=== PATIENT | female | born 1990 | race Caucasian/White ===

== ENCOUNTER 2016-08-17 18:22 | Emergency (ER) | payer BC, MEDICAID ==
--- NOTE | 2016-08-17 18:44 | EDPHY ---
H & P Stated Complaint: R calf pain R/O dvt Time Seen by Provider: 08/17/16 18:28 HPI/ROS: CHIEF COMPLAINT: Right calf pain, history of right knee injury HISTORY OF PRESENT ILLNESS: The patient presents to the ED with progressive right calf pain and foot pain over the past several days. The patient did injure her knee approximately 3 weeks ago. She is currently under the care of an orthopedic surgeon who is evaluating her for possible ligamentous injury. She is scheduled to get an MRI tomorrow. The patient has not had surgery however she has been immobilized using crutches. She denies any focal numbness or weakness. The patient has no prior history of DVT but does smoke and is currently on control pills. The patient denies any chest pain or shortness of breath. She denies additional complaints. She denies significant past medical history. REVIEW OF SYSTEMS: A comprehensive 10 point review of systems is otherwise negative aside from elements mentioned in the history of present illness. Source: Patient - Personal History LMP (Females 10-55): 1-7 Days Ago Current Tetanus/Diphtheria Vaccine: Unsure Current Tetanus Diphtheria and Acellular Pertussis (TDAP): Unsure - Medical/Surgical History Hx Asthma: No Hx Chronic Respiratory Disease: No Hx Diabetes: No Hx Cardiac Disease: No Hx Renal Disease: No Hx Cirrhosis: No Hx Alcoholism: No Hx HIV/AIDS: No Hx Splenectomy or Spleen Trauma: No Other PMH: R acl tear 07/15, l knee surgery - Social History Smoking Status: Current every day smoker - Physical Exam Exam: General Appearance: Alert, no distress Eyes: Pupils equal and round no pallor or injection ENT, Mouth: Mucous membranes moist Respiratory: There are no retractions, lungs are clear to auscultation Cardiovascular: Regular rate and rhythm Gastrointestinal: Abdomen is soft and nontender, no masses, bowel sounds normal Neurological: A&O, normal motor function, normal sensory exam, normal cranial nerves Skin: Warm and dry, no rashes Musculoskeletal: Neck is supple nontender Extremities: Tenderness to palpation noted in the right calf, 2+ dorsalis pedis and posterior tibial pulses Constitutional: Initial Vital Signs Temperature (C) 36.8 C 08/17/16 18:24 Heart Rate 106 H 08/17/16 18:24 Respiratory Rate 16 08/17/16 18:24 Blood Pressure 140/88 H 08/17/16 18:24 O2 Sat (%) 97 08/17/16 18:24 O2 Delivery Mode Room Air Allergies/Adverse Reactions: No Known Allergies Allergy (Unverified 05/15/14 18:08) Home Medications: Medication Instructions Recorded NK [No Known Home Meds] 05/15/14 Medical Decision Making - Diagnostics Imaging: Right lower extremity ultrasound: Negative for DVT. Study results reported to me by Dr. Heri Clements. ED Course/Re-evaluation: The patient presents to the emergency department with complaints of calf swelling. She has no evidence of a DVT noted on her ultrasound. The patient has no clinical evidence of an infection. At this point time I do feel she can safely be discharged home with instructions to repeat her ultrasound in 2 weeks for any ongoing symptoms. She has been told to return to the ED immediately for increasing pain, redness, fever, difficulty breathing or other concerns. Differential Diagnosis: Differential diagnosis considered includes DVT, myofascial strain, ruptured Izaguirre cyst, seroma, abscess, cellulitis Departure - Departure Disposition: Home, Routine, Self-Care Clinical Impression: Strain of right knee Condition: Good Instructions: Knee Pain (ED) Additional Instructions: 1. There is no evidence of a blood clot noted on your ultrasound today. 2. Please repeat the ultrasound in 2 weeks for any ongoing pain or swelling. 3. Please follow up as scheduled with your orthopedic surgeon. 4. Return to the ED for markedly worsening symptoms, difficulty breathing, fever or other concerns.
--- NOTE | 2016-08-17 19:55 | US ---
Ultrasound Venous Doppler Extremity-right side Indication: Right calf pain and swelling. TECHNIQUE: Grayscale and color imaging of the right lower extremity. FINDINGS: Right common femoral, profunda femoral, superficial femoral, popliteal, posterior tibial pe roneal and greater saphenous veins are patent, competent, and compressible and exhibit normal wavefor ms. Left common femoral vein is patent, competent, and compressible. IMPRESSION: No evidence of right lower extremity venous thrombosis. Critical results relayed by Dr. Clements to Dr. Kirk on August 17, 2016 at 1938 hours.
[2016-08-17 20:12] VITALS: BP 118/72; PULSE 76; RESP 17; TEMP 97.9; O2SAT 95
== END 2016-08-17 20:11 | disposition home or self-care (01) ==
DX: S86.911A Strain of unspecified muscle(s) and tendon(s) at lower leg level, right leg, initial encounter (principal); F17.200 Nicotine dependence, unspecified, uncomplicated; X58.XXXA Exposure to other specified factors, initial encounter